=== PATIENT | male | born 1945 | race Caucasian/White ===

== ENCOUNTER 2021-01-15 10:15 | Emergency (ER) | payer MEDICARE ==
[~2021-01-15] VITALS: Ht 170.2 cm; Wt 77.1 kg
[2021-01-15 10:23] VITALS: BP 137/89
[2021-01-15] MEDS ORDERED: AMOX-427 PO (10:28)
--- NOTE | 2021-01-15 10:34 | NUR ---
Patient discharged to home in stable condition. Written and verbal after care instructions given. Patient verbalizes understanding of instruction.
== END 2021-01-15 10:34 | disposition home or self-care (01) ==
LOC: ER 10:20
DX: S61.432A Puncture wound without foreign body of left hand, initial encounter (principal); S61.431A Puncture wound without foreign body of right hand, initial encounter; Z88.8 Allergy status to other drugs, medicaments and biological substances; W54.0XXA Bitten by dog, initial encounter; Y93.89 Activity, other specified; Y92.89 Other specified places as the place of occurrence of the external cause; Y99.8 Other external cause status
CPT/HCPCS: 99283; A6403